=== PATIENT | female | born 1980 | race Caucasian/White ===

== ENCOUNTER 2024-08-03 14:07 | Outpatient (CLI) | payer BC, SELFPAY | END 2024-08-03 14:08 | disposition home or self-care (01) | LOC: NFLDREF 08-04 08:51 | PROVIDERS: PCP Emergency Medicine; Referring Provider Emergency Medicine; Visit Provider Emergency Medicine | DX: E03.9 Hypothyroidism, unspecified (principal) | CPT/HCPCS: 84443 ==

== ENCOUNTER 2025-02-13 13:14 | Outpatient (CLI) | payer BC, SELFPAY ==
[2025-02-21 04:52] LABS: HPV Source Cervix; HPV, High Risk by TMA Not Detected
== END 2025-02-13 13:15 | disposition home or self-care (01) ==
PROVIDERS: PCP Emergency Medicine; Visit Provider Obstetrics & Gynecology
DX: E03.9 Hypothyroidism, unspecified (principal); D50.9 Iron deficiency anemia, unspecified; N93.9 Abnormal uterine and vaginal bleeding, unspecified; N95.1 Menopausal and female climacteric states; Z12.4 Encounter for screening for malignant neoplasm of cervix; Z11.51 Encounter for screening for human papillomavirus (HPV)
CPT/HCPCS: 80053; 80061; 82670; 83001; 83002; 84144; 84270; 84402; 84403; 84443; 87624; 87625; 88141; 88142

== ENCOUNTER 2025-03-02 14:28 | Outpatient (CLI) | payer BC, SELFPAY ==
--- NOTE | 2025-03-02 14:45 | CRLHL7_ITS ---
For Patients: As a result of the Century Cures Act, medical imaging exams and procedure reports are released immediately into your electronic medical record. You may view this report before your referring provider. If you have questions, please contact your health care provider. INDICATION: Abnormal uterine bleeding COMPARISON: none TECHNIQUE: 2D neri scale and color Doppler images were acquired of the pelvis using a transabdominal and transvaginal approach. FINDINGS: Sonographic images demonstrate a normal size and smooth outer contour of the uterus. Uterus measures 8.1 cm in length by 3.8 cm in AP diameter by 4.6 cm in transverse dimension. The myometrium has a normal uniform echotexture. The endometrial lining measures 8.2 mm in composite thickness. The right ovary measures 2.1 x 2.0 x 2.7 cm in size and the left ovary measures 1.7 x 0.9 x 1.9 cm. The ovaries demonstrate normal arterial and venous blood flow on color Doppler analysis. There are no suspicious fluid collections within the cul-de-sac. Hemorrhagic right ovarian cyst is present measuring less than 1 cm. IMPRESSION: Endometrial thickness 8.2 millimeters. Dictated by Harsha Feldman MD @ 03/03/2025 5:38:39 PM (Electronically Signed)
== END 2025-03-02 14:29 | disposition home or self-care (01) ==
LOC: US 14:28
PROVIDERS: PCP Emergency Medicine; Visit Provider Obstetrics & Gynecology
DX: N93.9 Abnormal uterine and vaginal bleeding, unspecified (principal); R93.89 Abnormal findings on diagnostic imaging of other specified body structures
CPT/HCPCS: 76830; 76856; 93976

== ENCOUNTER 2025-03-06 14:20 | Outpatient (CLI) | payer BC, SELFPAY | END 2025-03-06 14:21 | disposition home or self-care (01) | LOC: FRMREF 14:21 | PROVIDERS: PCP Emergency Medicine; Visit Provider Obstetrics & Gynecology | DX: N92.0 Excessive and frequent menstruation with regular cycle (principal); D50.9 Iron deficiency anemia, unspecified; E03.9 Hypothyroidism, unspecified | CPT/HCPCS: 84146 ==

== ENCOUNTER 2025-08-24 15:08 | Outpatient (CLI) | payer BC, SELFPAY | END 2025-08-24 15:09 | disposition home or self-care (01) | PROVIDERS: Visit Provider Physician Assistant Medical | DX: E03.9 Hypothyroidism, unspecified (principal); M25.50 Pain in unspecified joint | CPT/HCPCS: 83825; 84443 ==

== ENCOUNTER 2025-09-17 13:41 | Outpatient (CLI) | payer BC, SELFPAY ==
--- NOTE | 2025-09-17 14:00 | CRLHL7_ITS ---
For Patients: As a result of the 21st Century Cures Act, medical imaging exams and procedure reports are released immediately into your electronic medical record. You may view this report before your referring provider. If you have questions, please contact your health care provider. INDICATION: Abnormal MRI of spine, weight loss TECHNIQUE: CT chest, abdomen and pelvis acquired with 54 mL Isovue 370 IV contrast. COMPARISON: 03/02/2025 pelvic ultrasound, outside lumbar spine MRI 02/27/2025 images. No report available for the MRI. FINDINGS: CHEST: Cardiovascular structures: Heart size is normal. Thoracic aorta and main pulmonary artery are normal in caliber. Mediastinum and amber: No mass or adenopathy. Lungs and pleura: Several subpleural pulmonary nodules in the posterior right lower lobe. Largest measures 4.8 mm on image 50 of series 3. Additional scattered micro nodules in both lungs best seen on the MIP images. 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 This was present on the prior MRI and is roughly similar in SI diameter. This does not involve the adjacent neural foramina. No abnormality of the underlying bone. It appears separate from the pleura. Chest wall and axilla: No mass or adenopathy. Bones: No suspicious bone lesions. Unremarkable for age. ABDOMEN AND PELVIS: Liver: Unremarkable. Gallbladder and bile ducts: Unremarkable. Pancreas: Unremarkable. Spleen: Unremarkable. Adrenal glands: Unremarkable. Kidneys: Unremarkable. GI tract: Unremarkable. Vascular structures: Unremarkable. Lymph nodes: Unremarkable. Miscellaneous: Unremarkable. No free air or significant free fluid. Pelvic Organs: Unremarkable. Bones: No suspicious bone lesions. Unremarkable for age. IMPRESSION: 1. 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 Differential considerations include neoplasm, adenopathy, extramedullary hematopoiesis. This would be amenable to CT-guided biopsy if indicated. 2. Multiple nonspecific pulmonary nodules measuring up to 4.8 mm. Follow-up guidelines below. [employer] GUID[employer]INES - SOLID NODULES: SINGLE LOW RISK - nodule less than 6 mm: No routine follow-up. - nodule 6-8 mm: CT at 6-12 months, then consider CT at 18-24 months. - nodule greater than 8 mm: Consider CT at 3 months, PET/CT or tissue sampling. SINGLE HIGH RISK - nodule less than 6 mm: Optional CT at 12 months. - nodule 6-8 mm: CT at 6-12 months, then CT at 18-24 months. - nodule greater than 8 mm: Consider CT at 3 months, PET/CT or tissue sampling. MULTIPLE LOW RISK - nodule less than 6 mm: No routine follow-up. - nodule 6-8 mm: CT at 3-6 months, then consider CT at 18-24 months. - nodule greater than 8 mm: CT at 3-6 months, then consider CT at 18-24 months. MULTIPLE HIGH RISK - nodule less than 6 mm: Optional CT at 12 months. - nodule 6-8 mm: CT at 3-6 months, then at 18-24 months. - nodule greater than 8 mm: CT at 3-6 months, then at 18-24 months. Please note that all CT scans at this facility use dose modulation, iterative reconstruction, and/or weight-based dosing when appropriate to reduce radiation dose to as low as reasonably achievable. Dictated by Edward Magana MD @ 09/19/2025 11:09:07 AM (Electronically Signed)
== END 2025-09-17 13:42 | disposition home or self-care (01) ==
LOC: CT 13:41
PROVIDERS: Visit Provider Physician Assistant Medical
DX: R93.7 Abnormal findings on diagnostic imaging of other parts of musculoskeletal system (principal); R91.8 Other nonspecific abnormal finding of lung field; R63.4 Abnormal weight loss
CPT/HCPCS: 71260; 74177; Q9967